=== PATIENT | male | born 1965 | race Caucasian/White ===

== ENCOUNTER 2018-10-09 18:00 | Outpatient (RCR) | payer OTHER, SELFPAY ==
--- NOTE | 2018-09-05 12:58 | HP.PTEVAL_ITS ---
Patient's Visit Information ABIGAIL SENIOR is a 53 year old M referred to Physical Therapy by Jonathan Carrillo with a diagnosis of Right Plantar Fasciitis. Date of Evaluation: 08/31/18 Physical Therapist: Ajay Allen - Visit Plan Frequency: 2x /Week Duration: 4 Weeks Plan: Continue plantar fasciitis rehab. - Subjective Subjective: Pt. is here today for his initial evaluation with diagnosis of R plantar fasciatis. Pt. reports having increased pain for the last 3-4 month. He reports having a fasciotomy previously, 10+ years ago. Pt. reports having increased pain in AMs. No xrays completed. Pt. reports starting new positon at work requiring him to walk/stand more and attributes his pain to this. Pt. denies N/T in either LE. Pt. has been stretching every once in awhile. He reports having good foot wear and recently has had new orthotics made. Pt. reports no change in symptoms with orthotics. He also had injection which gave him some relief. He is hopeful to reduce symptoms in order to complete all recreational and work activties without issues. - Pain Right foot Pain Intensity (Out of 10): 3 Left foot Pain Intensity (Out of 10): 1 - Objective POSTURE: Pt. has normal posture in stance. He has slight L lateral wt. shift. Pt. has normal knee postioning, slight hip ER bilaterally. PALPATION: Pt. has increased pain at lateral plantar fascia. No pain throughout medial plantar fascia. Pt. has no achilles tendon pain either. NEURO: Normal all intact without issues. Pt. has 2+ achilles and patellar DTR bilaterally. ROM: L ankle- DF 16deg, PF 54deg, INV- 20deg, EVR 16deg. R ankle- DF 8deg, PF 48deg, INV 16deg, EVR 16deg. Normal knee ROM bilaterally. MMT: Pt. has 5/5 strength throughout bilateral ankle/knee. Pt. does ahve 4+/5 bilateral foot intrinsic strength. GAIT: Pt. is able to negotiate steps with reciprocal pattern, early R heel off with descending. Pt. ambulates without AD with normal step pattern. Pt. does have early heel off with RLE and has increased R toeing out. SPECIAL TESTING: + windlass test both loaded and unloaded. - Goals Goal 1:: Pt. to be I with HEP. Goal Time Frame: 4-6 Weeks Goal 2:: Pt. to have increased R ankle ROM increased by 25% in all effected ranges. Goal Time Frame: 4-6 Weeks Goal 3:: Pt. to have decreased pain in R foot with all walking and work activities. Goal Time Frame: 4-6 Weeks Goal 4:: Pt. to walk and negotiate steps without increase in pain and with normal gait pattern. Goal Time Frame: 4-6 Weeks - Rehabilitation Potential Physical Therapy Diagnosis: Pt. has signs and symptoms consistent with R plantar fasciatis. Pt. has decreased ankle moblity, increased lateral plantar fascia pain and intrinsic foot weakness. He would benefit from PT to address above limitations and decrease symptoms allowing for increased tolerance to work and recreational activities. Rehabilitation Potential: Excellent - Anticipated Interventions Patient/Client Instruction: Educate patient on: Condition, Plan of Care, Risk Factors, Benefits of Fitness Program For the Purpose of:: To foster healthy habits, To improve decision making, To facilitate caregiver knowledge, To improve self management, To prevent re- injury, To improve ability to perform tasks related to life management, To improve tolerance to ADL's Therapeutic Exercise to Include: Strength training, Power training, Postural training, Flexibilty training, Gait and locomotor training, Passive ROM, Active ROM For the Purpose of:: To decrease pain, To decrease swelling/inflammation, To in crease ROM, To improve nutrient delivery to tissue, To improve muscle performance and motor function, To improve health of tissue, To decrease soft tissue restriction, To increase flexibility/ROM Manual Therapy Techniques to Include: Scar massage, Mobilization, Passive ROM, Functional dry needling, Soft tissue mobilization For the Purpose of:: To decrease pain, To decrease swelling/inflammation, To increase ROM, To improve nutrient delivery to tissue, To improve muscle performance and motor function IF ES: Yes Ultrasound (thermal/non thermal): Yes For the Purpose of:: To decrease pain, To decrease swelling/inflammation, To increase ROM Thank you for the opportunity to evaluate your patient. For Medicare and Medicare HMO plans, please review the plan of care and approve it. It will need to be FAXED BACK to us at [phone] for Medicare purposes. Please let me know if there are questions or concerns regarding this plan of care. Physician Signature: Date:
--- NOTE | 2019-03-12 07:12 | HP.PTDCNRP_ITS ---
HP - Discharge Summary (1) - Patient Information ABIGAIL SENIOR was seen in my office for initial evaluation on 08/31/18. The following Plan of Care was established for this patient: Initial Frequency: 2x /Week Initial Duration: 4 Weeks - Anticipated Interventions Patient/Client Instruction: Educate patient on: Condition, Plan of Care, Risk Factors, Benefits of Fitness Program For the Purpose of:: To foster healthy habits, To improve decision making, To facilitate caregiver knowledge, To improve self management, To prevent re- injury, To improve ability to perform tasks related to life management, To improve tolerance to ADL's Therapeutic Exercise to Include: Strength training, Power training, Postural training, Flexibilty training, Gait and locomotor training, Passive ROM, Active ROM For the Purpose of:: To decrease pain, To decrease swelling/inflammation, To increase ROM, To improve nutrient delivery to tissue, To improve muscle performance and motor function, To improve health of tissue, To decrease soft tissue restriction, To increase flexibility/ROM Manual Therapy Techniques to Include: Scar massage, Mobilization, Passive ROM, Functional dry needling, Soft tissue mobilization For the Purpose of:: To decrease pain, To decrease swelling/inflammation, To increase ROM, To improve nutrient delivery to tissue, To improve muscle performance and motor function IF ES: Yes Ultrasound (thermal/non thermal): Yes For the Purpose of:: To decrease pain, To decrease swelling/inflammation, To increase ROM This patient was last seen in our office 10/09/18. Pertinent comments regarding their Physical therapy will appear below: Pt. was treated for his plantar fasciatis. Pt. progressed with manual and stretching techniques. Pt. was able to complete most actitiies without limitations. Pt. was back to most activities, except mild pain/stiffness in AMs. pt. did not attend his last visit and has not been seen in several months. Pt. will DC from PT at this point intime. At this point I will be discontinuing this patient from physical therapy. I would be happy to see this patient again in the future if found appropriate by the physician. Thank you! Ajay Allen, CHARLEST
== END 2018-10-09 19:00 | disposition home or self-care (01) ==
LOC: PT 18:00
PROVIDERS: Family Provider Internal Medicine; PCP Internal Medicine; Referring Provider Podiatrist Foot & Ankle Surgery; Visit Provider Podiatrist Foot & Ankle Surgery
DX: M72.2 Plantar fascial fibromatosis (principal)
CPT/HCPCS: 97035; 97110; 97140; 97161

== ENCOUNTER 2019-06-12 18:44 | Emergency (ER) | payer OTHER, SELFPAY ==
[2019-06-12 18:45] VITALS: BP 123/76; PULSE 68; RESP 16; TEMP 36.6; O2SAT 98; BMI 41.1
--- NOTE | 2019-06-12 20:32 | ED.DCSUM_ITS ---
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 Timing: Continuous Quality of Pain: - - sore Location: left hand Current Severity: Mild Maximum Severity: Mild Worsened by: palpation Relieved by: leaving alone Associated Symptoms: Negative for: Parasthesia, Weakness, Loss of Funtion Narrative: RHD Tetanus Immunization: 5-10 years - Past Medical History (1) Benign essential hypertension Status: Chronic Past Medical History - Allergies and Home Meds Allergies/Adverse Reactions: Allergies No Known Allergies Allergy (Verified 06/12/19 18:50) Primary Care Physician: Alyssia Britton MD [Primary Care Provider] - Surgical History: carpal tunnel syndrome Lives: Spouse/ Significant Other Smoking Status: Never smoker Review of Systems Musculoskeletal: Reports: Extremity Pain Skin: Reports: Wounds Neurological: Denies: Weakness, Parasthesia, Numbness Physical Exam Vital Signs/Narrative: Vital Signs Temp Pulse Resp BP Pulse Ox 06/12/19 18:45 97.8 F 68 16 123/76 H 98 General: Well nourished, Well developed, - - well-appearing, nad Head: Normocephalic, Atraumatic Extremeties: Nontender left hand, full extension intact. Wound does not go beyond the dermis but is into it. No exposed nerve, lacerated blood vessel, bone, or tendon. Skin: Normal color, Trauma - 2cm dermal laceration dorsum of left hand Neurological: Alert, Oriented x3, Cranial nerves II-XII grossly intact, Normal Strength, Normal Sensation, Normal Gait Psychological: Normal affect, Normal Mood Diagnostic/Tx/Re-eval - Medical Decision Making Tetanus was updated. Laceration repaired. Follow-up 10 to 14 days for removal. Keep covered and clean. Dressed with bacitracin. Procedures - Lacerations Left hand Length: 2 cm Depth: Sub Q Shape: Linear Prep: Sterile Conditions, Chlorhexadine Laceration repair: Lidocaine - 2cc, Local Number of Sutures/Lorraine: 2 Suture Information: Ethilon, Horizontal, Mattress, 4-0 Comment: Good skin edge apposition with eversion, and hemostasis. No convocation. Tolerated well. ED Disposition - Plan for ED Patient: Disposition: Home or Assisted Living Diagnosis: Laceration of left hand, Immunization, tetanus-diphtheria Instructions: LACERATION, Extrem (Suture, Staple or Tape) Referrals: Alyssia Britton MD [Primary Care Provider] - 10-14 Days suture removal
[2019-06-12] MEDS: Diphth,Pertuss(Acell),Tet Vac 0.5 ML Vial IM (20:51)
[2019-06-12 21:26] VITALS: BP 125/78; PULSE 60; RESP 18; O2SAT 98
== END 2019-06-12 21:30 | disposition home or self-care (01) ==
PROVIDERS: Emergency Provider Emergency Medicine; Family Provider Internal Medicine; PCP Internal Medicine
DX: S61.412A Laceration without foreign body of left hand, initial encounter (principal); W22.8XXA Striking against or struck by other objects, initial encounter; Y93.9 Activity, unspecified; I10 Essential (primary) hypertension; Z79.82 Long term (current) use of aspirin
CPT/HCPCS: 12001; 90471; 90715; 99283

== ENCOUNTER → 2020-05-20 09:34 | Outpatient (CLI) | payer OTHER, SELFPAY ==
--- NOTE | 2020-05-20 09:52 | EKG12_ITS ---
Test Reason : PREOP Blood Pressure : / mmHG Vent. Rate : 061 BPM Atrial Rate : 061 BPM P-R Int : 174 ms QRS Dur : 094 ms QT Int : 420 ms P-R-T Axes : 009 -49 004 degrees QTc Int : 422 ms Normal sinus rhythm Left axis deviation Septal infarct (cited on or before 27-DEC-2005) Abnormal ECG Confirmed by SOFIE STREETER ([id number]), film and video editor LEO TERRY ([id number]) on 05/21/2020 2:38:07 PM Referred By: Vinita Adler Confirmed By:SOFIE STREETER
[2020-05-20 10:04] LABS: Hematocrit 42.1 % (40-54); Hemoglobin 14.3 g/dL (13.0-16.5); Mean Corpuscular Hgb 30.6 pg (27.0-32.0); Mean Corpuscular Volume 90.1 fL (80-94); Mean Platelet Vol. 10.3 fl (6.2-12.0); Platelet Count 212 K/mm3 (150-450); RBC Distribution Width CV 13.9 % (11.6-14.6); RBC Distribution Width SD 46.4 fl (35.1-43.9); Red Blood Count 4.67 M/mm3 (4.6-6.2); White Blood Count 4.3 K/mm3 (4.4-11.0)
[2020-05-20 10:31] LABS: Anion Gap 2 (5-15); BUN 20 mg/dL (7-18); BUN/Creat Ratio 21.4 RATIO (10-20); Calcium,Total 8.6 mg/dL (8.5-10.1); Chloride 110 mmol/L (98-107); Creatinine, Serum 0.94 mg/dL (0.70-1.30); EST Glomerular Filtration Rate 89 mL/min (>60); Est Glom Filt Rate - Afr Amer 108 mL/min (>60); Glucose 96 mg/dL (74-106); Sodium Level 139 mmol/L (136-145)
== END ==
PROVIDERS: PCP Family Medicine; Referring Provider Physician Assistant; Visit Provider Physician Assistant
DX: Z01.810 Encounter for preprocedural cardiovascular examination (principal)
CPT/HCPCS: 36415; 80048; 85027; 93005

== ENCOUNTER → 2020-05-29 17:58 | Outpatient (CLI) | payer OTHER, SELFPAY | PROVIDERS: PCP Family Medicine; Referring Provider Physician Assistant; Visit Provider Physician Assistant | DX: Z11.59 Encounter for screening for other viral diseases (principal) | CPT/HCPCS: 87635; 94799; C9803; U0003 ==